=== PATIENT | male | born 1960 | race American Indian/Alaskan Native ===

== ENCOUNTER 2021-03-21 17:54 | Emergency (ER) | payer BC, OTHER ==
[2021-03-21 18:28] VITALS: BMI 23.3
[2021-03-21 20:19] LABS: BASO % 0.3 % (0-2.0); EOS % 0.4 % (0-4.5); HEMATOCRIT 42.2 % (35.4-49); HEMOGLOBIN 14.2 GM/dL (11.7-16.9); LYMPH % 7.9 % (8-40); MCHC 33.7 g/dl (32.0-35.9); MEAN PLT VOLUME 9.4 fl (7.5-11.1); MONO % 5.7 % (3.8-10.2); NEUT % 85.7 % (42.8-82.8); PLATELET COUNT 174 10^3/uL (134-434); RBC 4.74 M/mm3 (4.00-5.60); RDW 13.4 % (11.9-15.9); WHITE BLOOD COUNT 10.3 K/mm3 (4.0-10.0)
[2021-03-21 20:45] LABS: CHLORIDE 110 mmol/L (98-107); SODIUM 142 mmol/L (136-145)
[2021-03-21 20:47] LABS: CALCIUM 8.4 mg/dL (8.5-10.1); GLUCOSE,RANDOM 138 mg/dL (74-106)
[2021-03-21 20:48] LABS: ALBUMIN 3.8 g/dl (3.4-5.0); ANION GAP 4 MMOL/L (8-16); BLOOD UREA NITROGEN 14.2 mg/dL (7-18); CO2 28 mmol/L (21-32)
[2021-03-21 20:50] LABS: CREATININE 0.8 mg/dL (0.55-1.3)
[2021-03-21 20:51] LABS: SGOT/AST 23 U/L (15-37); SGPT/ALT 38 U/L (13-61)
[2021-03-21 20:52] LABS: BILIRUBIN,TOTAL 0.3 mg/dL (0.2-1)
[2021-03-21 20:53] LABS: ALK PHOS 49 U/L (45-117)
[2021-03-21 23:04] LABS: URINE APPEARANCE CLEAR; URINE BILIRUBIN NEGATIVE (NEGATIVE); URINE COLOR YELLOW; URINE GLUCOSE (UA) NEGATIVE (NEGATIVE); URINE KETONE NEGATIVE (NEGATIVE); URINE LEUK ESTERASE NEGATIVE (NEGATIVE); URINE NITRITE NEGATIVE (NEGATIVE); URINE PROTEIN NEGATIVE (NEGATIVE); URINE UROBILINOGEN 0.2 mg/dL (0.2-1.0)
[2021-03-22 00:20] VITALS: BP 134/83; PULSE 68; TEMP 98.1
== END 2021-03-22 00:51 | disposition home or self-care (01) ==
LOC: JER 17:54
DX: R55 Syncope and collapse (principal)
CPT/HCPCS: 36415; 71046-TC-FY; 80053; 81003; 82550; 82962; 84484; 85025; 87086; 93005; 93010; 99284-25

== ENCOUNTER 2023-10-01 10:39 | Emergency (ER) | payer BC, OTHER ==
[2023-10-01 10:52] VITALS: BMI 23.3
[2023-10-01 12:00] LABS: BASO % 0.5 % (0-2.0); EOS % 0.8 % (0-4.5); HEMATOCRIT 43.6 % (35.4-49); HEMOGLOBIN 14.6 GM/dL (11.7-16.9); LYMPH % 11.3 % (8-40); MCH 30.7 pg (25.7-33.7); MCHC 33.6 g/dl (32.0-35.9); MEAN CELL VOLUME 91.3 fl (80-96); MEAN PLT VOLUME 8.9 fl (7.5-11.1); MONO % 6.7 % (3.8-10.2); NEUT % 80.7 % (42.8-82.8); PLATELET COUNT 194 10^3/uL (134-434); RBC 4.78 M/mm3 (4.00-5.60); RDW 13.4 % (11.9-15.9); WHITE BLOOD COUNT 9.3 K/mm3 (4.0-10.0)
[2023-10-01 12:07] LABS: INR 0.92 (0.83-1.09); PROTHROMBIN TIME (PATIENT) 10.4 SEC (9.7-13.0)
[2023-10-01 12:10] LABS: ACTIVATED PTT 28.4 SECONDS (25.2-36.5)
[2023-10-01 12:42] LABS: POTASSIUM 4.7 mmol/L (3.5-5.1)
[2023-10-01 12:45] LABS: ALBUMIN 3.8 g/dl (3.4-5.0); BLOOD UREA NITROGEN 13.3 mg/dL (7-18); CALCIUM 9.3 mg/dL (8.5-10.1)
[2023-10-01 12:48] LABS: CREATININE 0.9 mg/dL (0.55-1.3)
[2023-10-01 12:50] LABS: BILIRUBIN,TOTAL 0.4 mg/dL (0.2-1); TOT PROT 6.9 g/dl (6.4-8.2)
[2023-10-01] MEDS: LACTATED RINGERS SOLUTION 1000 ML INFUS.BAG IV ONE (12:50)
[2023-10-01] MEDS: LACTATED RINGERS SOLUTION 1,000 ML/1,000 ML INFUS.BAG IV STA (13:31)
[2023-10-01 13:49] VITALS: BP 132/85; PULSE 61; RESP 18; TEMP 97.8
== END 2023-10-01 15:37 | disposition home or self-care (01) ==
LOC: JER 10:39
DX: R42 Dizziness and giddiness (principal); R61 Generalized hyperhidrosis
CPT/HCPCS: 36415; 71045-TC-FY; 80053; 83735; 84484; 85025; 85610; 85730; 93005; 93010; 99285-25